=== PATIENT | male | born 1980 ===

== ENCOUNTER 2020-05-17 16:44 | Emergency (ER) | payer SELFPAY ==
[~2020-05-17] VITALS: Ht 165.1 cm; Wt 79.4 kg
--- NOTE | 2020-05-17 17:36 | ED EENT ---
History of Present Illness General Chief Complaint: Eye Problems Stated Complaint: EYE IRRITATION Nursing Triage Note: PT AMBULATE TO ROOM FT1 WITH C/O LEFT EYE PAIN STARTING YESTERDAY AT 1200. PT REPORTS THAT HE CANNOT CLOSE HIS EYE FOR VERY LONG. PT STATES HE HAS NOT TAKEN ANYTHING FOR PAIN REQUESTING PAIN MEDICATION. 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 He states he woke yesterday with redness in his left eye which has progressively worsened and he started experiencing pain today. States he is unable to close his eye due to the pain. Denies any injury or contamination. Denies blurry vision. loss of vision, or double vision. Timing/Duration: gradual Location: eye (L) Associated Symptoms: denies symptoms Allergies and Home Medications Allergies Coded Allergies: No Known Drug Allergies (Unverified , 05/17/20) Patient Home Medication List Home Medication List Reviewed: Yes Review of Systems Review of Systems Constitutional: no symptoms reported Eyes: See HPI Ears: No Symptoms Reported Nose: no symptoms reported Mouth: no symptoms reported Throat: no symptoms reported Respiratory: no symptoms reported Cardiovascular: no symptoms reported Gastrointestinal: no symptoms reported Musculoskeletal: no symptoms reported Skin: no symptoms reported Neurological: No Symptoms Reported Hematologic/Lymphatic: No Symptoms Reported Immunological/Allergic: no symptoms reported Past Oewfhqi-Dwkfil-Xenutv Hx Patient Social History Alcohol Use: Denies Use Recreational Drug Use: No Smoking Status: Never a Smoker 2nd Hand Smoke Exposure: No Recent Foreign Travel: No Contact w/Someone Who Travel: No Recent Infectious Disease Expo: No Recent Hopitalizations: No Physical Abuse: No Sexual Abuse: No Mistreated: No Fear: No Seasonal Allergies Seasonal Allergies: No Past Medical History Surgeries: No Respiratory: No Cardiac: No Neurological: No Genitourinary: No Gastrointestinal: No Musculoskeletal: No Endocrine: No HEENT: No Cancer: No Psychosocial: No Integumentary: No Blood Disorders: No Visual Acuity : Eye Location: Bilaterally Vision Acuity Degree: 20/20 Physical Exam Vital Signs Vital Signs - First Documented 05/17/20 05/17/20 17:18 18:22 Temp 36.4 Pulse 74 Resp 16 B/P (MAP) 136/88 (104) Pulse Ox 100 O2 Delivery Room Air Height, Weight, BMI Height: '" Weight: lbs. oz. kg; 29.00 BMI Method: General Appearance: WD/WN, no apparent distress Eyes: right eye normal inspection; left eye foreign body; bilateral eye PERRL, bilateral eye EOMI Ears: bilateral ear auricle normal, bilateral ear TM normal Nose: normal inspection Mouth/Throat: normal mouth inspection, pharynx normal Neck: full range of motion, normal inspection Cardiovascular: regular rate, rhythm, no murmur Respiratory: chest non-tender, lungs clear, normal breath sounds, no respiratory distress, no accessory muscle use Neurologic/Psychiatric: alert, normal mood/affect, oriented x 3 Skin: normal color, warm/dry Progress/Results/Core Measures Results/Orders My Orders Orders - LATOYA BERNARD APRN Tetracaine 0.5% Ophth Nancy Sdv (Tetracai (05/17/20 17:45) Fluorescein Strips (Mvxfi-X-Ivwopa) (05/17/20 17:45) Boric Acid/Sodium Borate Ophth (Eye Wash (05/17/20 17:45) Balanced Salt Irrigation Soln (Bss Irrig (05/17/20 17:52) Medications Given in ED Current Medications Medications Dose Ordered Sig/Steven Route Start Time Stop Time Status Last Admin Dose Admin Balanced Salt Solution 15 ml STK-MED ONCE .ROUTE 05/17/20 17:52 05/17/20 17:56 DC 05/17/20 17:58 15 ML Fluorescein Sodium 1 mg ONCE ONCE OU 05/17/20 17:45 05/17/20 17:46 DC 05/17/20 17:57 1 MG Tetracaine HCl 4 ml ONCE ONCE OU 05/17/20 17:45 05/17/20 17:46 DC 05/17/20 17:57 4 ML Vital Signs/I&O 05/17/20 05/17/20 17:18 18:22 Temp 36.4 Pulse 74 89 Resp 16 19 B/P (MAP) 136/88 (104) 141/80 Pulse Ox 100 O2 Delivery Room Air Room Air Blood Pressure Mean: 104 Progress Progress Note : Time: 18:12 Progress Note 1805: Left eye was anesthetized with tetracaine, fluorescein was placed in left eye and examined under fluorescent light. A small foreign body was noted on the medial aspect of his left eye, midway between the iris in the lacrimal duct. 1817: Discussed findings with Dr. Burr at this time. He recommended patient meeting him at his office in 30 minutes to remove foreign body. I discussed this with the patient and he is agreeable with plan. Departure Impression Primary Impression: Foreign body of cornea Disposition: HOME, SELF-CARE Condition: Stable/Unchanged Departure-Patient Inst. Decision time for Depature: 18:12 Patient Instructions: Foreign Body in Eye Add. Discharge Instructions: Plan: 1. As soon as you leave here head to Dr. Burr's office in [place] across from [facility]. The office is located at [address] [place] [address] in [place], [place]. 2. . Return for any new or concerning symptoms. All discharge instructions reviewed with patient and/or family. Voiced understanding. LATOYA BERNARD PLANT QUALITY MANAGER May 17, 2020 17:35
[2020-05-17] MEDS ORDERED: TETRACAINE 0.5% OPHTH SOLN 4 ML BTL (SINGLE DOSE ONLY) OU ONE (17:45)
[2020-05-17] MEDS ORDERED: FLUORESCEIN (FLUOR-I-STRIPS) 1 MG STRP OU ONE (17:45)
[2020-05-17] MEDS ORDERED: EYE WASH 118 ML BTL OS ONE (17:45)
[2020-05-17] MEDS ORDERED: BSS 15 ML ONE (17:52)
[2020-05-17 18:22] VITALS: BP 141/80
== END 2020-05-17 18:22 | disposition home or self-care (01) ==
LOC: ER 16:47
DX: T15.02XA Foreign body in cornea, left eye, initial encounter (principal); X58.XXXA Exposure to other specified factors, initial encounter
CPT/HCPCS: 99282

== ENCOUNTER 2022-09-27 09:45 | Emergency (ER) | payer OTHER ==
[~2022-09-27] VITALS: Ht 167 cm; Wt 77.1 kg
[2022-09-27 10:25] LABS: BASOPHILS # (AUTO) 0.1 10^3/uL (0.0-0.1); BASOPHILS % (AUTO) 1 % (0-10); EOSINOPHILS # (AUTO) 0.1 10^3/uL (0.0-0.3); EOSINOPHILS % (AUTO) 1 % (0-10); HEMATOCRIT 47 % (40-54); HEMOGLOBIN 16.2 g/dL (13.3-17.7); LYMPHOCYTES # (AUTO) 2.3 10^3/uL (1.0-4.0); LYMPHOCYTES % (AUTO) 32 % (12-44); MEAN CORPUSCULAR HEMOGLOBIN 29 pg (25-34); MEAN CORPUSCULAR HGB CONC 35 g/dL (32-36); MEAN CORPUSCULAR VOLUME 85 fL (80-99); MEAN PLATELET VOLUME 9.1 fL (9.0-12.2); MONOCYTES # (AUTO) 0.5 10^3/uL (0.0-1.0); MONOCYTES % (AUTO) 7 % (0-12); NEUTROPHILS # (AUTO) 4.3 10^3/uL (1.8-7.8); NEUTROPHILS % (AUTO) 59 % (42-75); PLATELET COUNT 272 10^3/uL (130-400); WHITE BLOOD COUNT 7.3 10^3/uL (4.3-11.0)
[2022-09-27 10:52] LABS: POTASSIUM 3.8 MMOL/L (3.6-5.0)
[2022-09-27 10:53] LABS: CALCIUM 9.5 MG/DL (8.5-10.1)
[2022-09-27 10:57] LABS: CREATININE SERUM 0.83 MG/DL (0.60-1.30)
--- NOTE | 2022-09-27 11:01 | ED EENT ---
History of Present Illness General Chief Complaint: Facial Problems Stated Complaint: SWOLLEN FACE | LT SIDE OF FACE NUMB Nursing Triage Note: PT AMB TO RM 8 WITH COMPLAINT OF LEFT SIDE NECK PAIN, FACIAL NUMBNESS, AND SWELLING. STATES START TODAY. Source: patient, staff interpreter Exam Limitations: no limitations History of Present Illness Date Seen by Provider: Sep 27, 2022 Time Seen by Provider: 10:20 Initial Comments 41-year-old male presents to the emergency department today for left neck, periauricular pain and numbness to the left side of his face. Symptoms started his left neck pain last night. This morning he woke up and had worsening of back pain as well as pain in his periauricular region and noticed numbness in his left face. He states his left face "will not work." He denies any dysarthria, changes in vision, upper or lower extremity weakness numbness or tingling. He has never had any similar symptoms in the past. Prior to the onset of current events he was healthy. He denies any injuries. No recent tick bites or illness. He has had his immunizations. Patient is Mauritian-speaking exclusively. History and discharge instructions, all information conveyed via language interpreter Allergies and Home Medications Allergies Coded Allergies: No Known Drug Allergies (Unverified , 05/17/20) Patient Home Medication List Home Medication List Reviewed: Yes Acyclovir (Acyclovir) 400 Mg Tablet, 400 MG PO TID Prescribed by: IRIS MCRAE MD on 09/27/22 1158 Prednisone (Prednisone) 50 Mg Tab, 50 MG PO DAILY Prescribed by: IRIS MCRAE MD on 09/27/22 1158 Review of Systems Review of Systems Constitutional: no symptoms reported Eyes: No Symptoms Reported Ears: No Symptoms Reported Nose: no symptoms reported Mouth: no symptoms reported Throat: no symptoms reported Respiratory: no symptoms reported Cardiovascular: no symptoms reported Gastrointestinal: no symptoms reported Musculoskeletal: neck pain Skin: no symptoms reported Neurological: Numbness, Weakness Hematologic/Lymphatic: No Symptoms Reported Immunological/Allergic: no symptoms reported Past Oacmlbe-Pizkfy-Lpiyio Hx Patient Social History Tobacco Use?: No Use of E-Cig and/or Vaping dev: No Substance use?: No Alcohol Use?: No Pt feels they are or have been: No Seasonal Allergies Seasonal Allergies: No Past Medical History Surgeries: No Respiratory: No Cardiac: No Neurological: No Genitourinary: No Gastrointestinal: No Musculoskeletal: No Endocrine: No HEENT: No Cancer: No Psychosocial: No Integumentary: No Blood Disorders: No Family Medical History Reviewed Nursing Family Hx No Pertinent Family Hx Physical Exam Vital Signs Vital Signs - First Documented 09/27/22 10:02 Temp 35.9 Pulse 94 Resp 16 B/P (MAP) 154/100 (118) Pulse Ox 98 O2 Delivery Room Air Height, Weight, BMI Height: '" Weight: lbs. oz. kg; 27.00 BMI Method: General Appearance: WD/WN, no apparent distress Eyes: bilateral eye normal inspection, bilateral eye PERRL, bilateral eye EOMI Ears: bilateral ear auricle normal, bilateral ear canal normal, bilateral ear TM normal, bilateral ear other (There is swelling in the posterior inferior auricular region the left side) Nose: normal inspection Mouth/Throat: normal mouth inspection, pharynx normal, dental tenderness Neck: other (Tenderness palpation left lateral neck region with some swelling in this area. There is no fluctuance. No overlying skin changes.) Cardiovascular: normal peripheral pulses, regular rate, rhythm, no edema, no murmur Respiratory: chest non-tender, lungs clear, normal breath sounds, no respiratory distress, no accessory muscle use Gastrointestinal: normal bowel sounds, non tender, soft, no organomegaly Neurologic/Psychiatric: alert, normal mood/affect, oriented x 3 Skin: normal color, warm/dry Progress/Results/Core Measures Results/Orders Lab Results Laboratory Tests Test 09/27/22 10:19 Range/Units White Blood Count 7.3 4.3-11.0 10^3/uL Red Blood Count 5.54 H 4.30-5.52 10^6/uL Hemoglobin 16.2 13.3-17.7 g/dL Hematocrit 47 40-54 % Mean Corpuscular Volume 85 80-99 fL Mean Corpuscular Hemoglobin 29 25-34 pg Mean Corpuscular Hemoglobin Concent 35 32-36 g/dL Red Cell Distribution Width 12.1 10.0-14.5 % Platelet Count 272 130-400 10^3/uL Mean Platelet Volume 9.1 9.0-12.2 fL Immature Granulocyte % (Auto) 0 % Neutrophils (%) (Auto) 59 42-75 % Lymphocytes (%) (Auto) 32 12-44 % Monocytes (%) (Auto) 7 0-12 % Eosinophils (%) (Auto) 1 0-10 % Basophils (%) (Auto) 1 0-10 % Neutrophils # (Auto) 4.3 1.8-7.8 10^3/uL Lymphocytes # (Auto) 2.3 1.0-4.0 10^3/uL Monocytes # (Auto) 0.5 0.0-1.0 10^3/uL Eosinophils # (Auto) 0.1 0.0-0.3 10^3/uL Basophils # (Auto) 0.1 0.0-0.1 10^3/uL Immature Granulocyte # (Auto) 0.0 0.0-0.1 10^3/uL Sodium Level 140 135-145 MMOL/L Potassium Level 3.8 3.6-5.0 MMOL/L Chloride Level 104 98-107 MMOL/L Carbon Dioxide Level 25 21-32 MMOL/L Anion Gap 11 5-14 MMOL/L Blood Urea Nitrogen 13 7-18 MG/DL Creatinine 0.83 0.60-1.30 MG/DL Estimat Glomerular Filtration Rate 113 BUN/Creatinine Ratio 16 Glucose Level 84 70-105 MG/DL Calcium Level 9.5 8.5-10.1 MG/DL My Orders Orders - IRIS MCRAE DO Ct Neck (Soft Tissue) W (09/27/22 10:13) Cbc With Automated Diff (09/27/22 10:13) Basic Metabolic Panel (09/27/22 10:13) Iohexol Injection (Omnipaque 350 Mg/Ml 1 (09/27/22 11:15) Ns (Ivpb) (Sodium Chloride 0.9% Ivpb Bag (09/27/22 11:15) Sodium Chloride Flush (Catheter Flush Sy (09/27/22 11:15) Medications Given in ED Vital Signs/I&O Blood Pressure Mean: 118 Departure Communication (Admissions) Patient is hemodynamically stable. CT scan shows no evidence of mass, likely cervical lymphadenopathy with reactive in nature. No indication of peritonitis based on CT scanning. Clinical exam consistent with Hutson's palsy. No indication for head CT at this time. This is likely related to irritation of the facial nerve from his reactive lymphadenopathy. Be treated with steroids, antivirals. I did notify him that symptoms could be lifelong however at least most people improve somewhat if not completely. He states understanding. He is discharged in stable condition with supportive care and close follow-up. Impression Primary Impression: Reactive lymphadenopathy Additional Impression: Hutson's palsy Disposition: 01 HOME, SELF-CARE Condition: Stable Departure-Patient Inst. Referrals: NO,LOCAL PHYSICIAN (PCP/Family) Primary Care Physician Patient Instructions: Hutson's Palsy Add. Discharge Instructions: You have lymph nodes in your neck that are slightly inflamed. This is likely causing irritation to the facial nerve causing Hutson's palsy. Recommend you take the antiviral medicine, steroid medicine as prescribed until they are gone. Sometimes symptoms from Hutson's palsy can maintain for life however most of the time you get at least some improvement in the paralysis of the side of the face involved. Some people do recover completely. Recommend you wear an eye patch over your left eye and use artificial tears and then I every 2-3 hours for lubrication. Return to the emergency department for any severe concerns. Follow-up with your primary doctor in the next couple weeks should your symptoms persist. All discharge instructions reviewed with patient and/or family. Voiced understanding. Tiene ganglios linfticos en el lorna que estn levemente inflamados. Es probable que esto cause irritacin en el nervio facial que causa la parlisis de Hutson. Le recomendamos que tome el medicamento antiviral, el medicamento esteroide segn lo prescrito hasta que se terminen. A veces, los sntomas de la parlisis de Hutson pueden mantenerse de por amanda; sin embargo, la mayora de las veces se obtiene al menos alguna mejora en la parlisis del lado de la james afectado. Algunas personas se recuperan por completo. Le recomiendo que use un parche en el marisa salome y use lgrimas artificiales y luego yo cada 2-3 horas para la lubricacin. Regrese al departamento de emergencias por cualquier inquietud grave. Jannette un seguimiento con romero mdico de cabecera en las prximas dos semanas si tyrell sntomas persisten. Todas las instrucciones de josee revisadas con el paciente y/o la judy. Comprensin expresada. Scripts Prednisone (Prednisone) 50 Mg Tab 50 MG PO DAILY for 5 Days, #5 TAB Prov: IRIS MCRAE DO 09/27/22 Acyclovir (Acyclovir) 400 Mg Tablet 400 MG PO TID for 7 Days, #21 TAB Prov: IRIS MCRAE DO 09/27/22 IRIS MCRAE DO Sep 27, 2022 11:01
[2022-09-27] MEDS ORDERED: NS 100 ML (IVPB) BAG IV ONE (11:15)
[2022-09-27] MEDS ORDERED: CATHETER FLUSH 10 ML SYR IV PRN (11:15)
[2022-09-27] MEDS ORDERED: IOHEXOL 350 MG/ML 100 ML (OMNIPAQUE 350) VIAL IV ONE (11:15)
--- NOTE | 2022-09-27 11:39 | Diagnostic Imaging Report ---
PROCEDURE: CT neck soft tissue with contrast. TECHNIQUE: Multiple contiguous axial images were obtained through the neck after the administration of contrast. Auto Exposure Controls were utilized during the CT exam to meet ALARA standards for radiation dose reduction. INDICATION: Left facial and neck swelling. Bilateral jugular veins appeared patent as well as the visualized innominate and upper SVC no arterial thrombus or significant stenosis found. There is now no abscess hematoma or other acute fluid collection. Parotid submandibular and thyroid glands unremarkable. The structures of the larynx and the infra laryngeal trachea patent. Prevertebral and retropharyngeal spaces unremarkable. Submucous retention cyst in the right maxillary sinus. Visualized intracranial contents and partially visualized orbits as well as remaining paranasal sinuses and mastoid air cells and middle ear cavities are clear. No acute bony pathology. There are a few small reactive-appearing cervical lymph nodes bilateral greater left. No suspicious mass. No abnormal calcifications. IMPRESSION: Some mild presumed reactive cervical adenopathy. No suspicious mass, abscess, hemorrhage, fluid collection or acute vascular pathology. Chronic maxillary sinus, mucus retention cyst with no acute appearing sinus disease. Dictated by: Dictated on workstation # [id number]
[2022-09-27] MEDS ORDERED: ACYC400T21 PO (11:58)
[2022-09-27] MEDS ORDERED: PRD50T PO (11:58)
[2022-09-27 12:16] VITALS: BP 128/87
== END 2022-09-27 12:16 | disposition home or self-care (01) ==
LOC: EDUNIT# 09:45 → ER 09:49
DX: R59.1 Generalized enlarged lymph nodes (principal); G51.0 Bell's palsy
CPT/HCPCS: 36415; 70491; 80048; 85025